=== PATIENT | female | born 1995 ===

== ENCOUNTER 2017-04-06 17:32 | Emergency (ER) | payer OTHER ==
--- NOTE | 2017-04-06 19:39 | ED ---
Head Injury - HPI Summary HPI Summary: Patient presents to ED after sustaining a head injury during an obstacle course yesterday. She states she fell backwards hitting the side of her head and immediately felt nauseous afterwards. She denies vomiting. Today, she endorses feeling off and lethargic. Denies confusion, memory loss, photophobia or abdominal pain. She denies other injuries or pain. Denies midline tenderness over cervical spine. She was able to complete the race yesterday without issues. She has not taken any medications for relief. - History Of Current Complaint Chief Complaint: EDHeadInjury Stated Complaint: FALL/HEAD INJURY Time Seen by Provider: 04/06/17 18:13 Hx Obtained From: Patient Hx Last Menstrual Period: 07/23/12 Mechanism Of Injury: Fall From Height Of: - 3 ft Onset/Duration: Started Days Ago Onset of Pain: Immediate Severity Currently: Mild Severity Initially: Mild Pain Intensity: 1 Pain Scale Used: 0-10 Numeric Location: Diffuse Character: Throbbing Alleviating Factor(s): Rest Associated Signs And Symptoms: Nausea - Risk Factors SDH Risk Factor: Negative - Allergies/Home Medications Allergies/Adverse Reactions: Allergies Allergy/AdvReac Type Severity Reaction Status Date / Time Amoxicillin Allergy Intermediate See Comment Verified 04/06/17 17:35 PMH/Surg Hx/FS Hx/Imm Hx Previously Healthy: Yes - Surgical History Surgery Procedure, Year, and [facility] Aden[facility]. - Immunization History Hx Pertussis Vaccination: No Immunizations Up to Date: Yes Infectious Disease History: No Infectious Disease History: Denies: Traveled Outside the [place] in Last 30 Days - Social History Occupation: Unemployed Lives: With Family Hx Substance Use: No Substance Use Type: Reports: None Hx Tobacco Use: No Smoking Status (MU): Never Smoked Tobacco Review of Systems Constitutional: Negative Positive: Photophobia ENT: Negative Cardiovascular: Negative Positive: Nausea Positive: no symptoms reported, see HPI Musculoskeletal: Negative Positive: Headache Psychological: Normal All Other Systems Reviewed And Are Negative: Yes Physical Exam Triage Information Reviewed: Yes Vital Signs On Initial Exam: Initial Vitals Temp Pulse Resp BP Pulse Ox 97.8 F 80 16 143/77 100 04/06/17 17:39 04/06/17 17:39 04/06/17 17:39 04/06/17 17:39 04/06/17 17:39 Vital Signs Reviewed: Yes Appearance: Positive: Well-Appearing, Well-Nourished Skin: Positive: Warm, Skin Color Reflects Adequate Perfusion Head/Face: Positive: Normal Head/Face Inspection Eyes: Positive: Normal, ESME, Conjunctiva Clear Neck: Positive: Supple, No Lymphadenopathy Respiratory/Lung Sounds: Positive: Clear to Auscultation, Breath Sounds Present Cardiovascular: Positive: Pulses are Symmetrical in both Upper and Lower Extremities Musculoskeletal: Positive: Normal, Strength/ROM Intact Neurological: Positive: Normal, Sensory/Motor Intact, Alert, Oriented to Person Place, Time, CN Intact II-III, Normal Gait, Speech Normal Psychiatric: Positive: Normal AVPU Assessment: Alert Diagnostics - Vital Signs Vital Signs Temp Pulse Resp BP Pulse Ox 04/06/17 17:39 97.8 F 80 16 143/77 100 - Laboratory Lab Statement: Any lab studies that have been ordered have been reviewed, and results considered in the medical decision making process. Head Injury Course/Dx Course Of Treatment: According to Dent CT Head Rules, CT was NOT obtained d/ t: GCS score >15 at 2h post injury. No suspected open or depressed skull fx, no sign of basal skull fx, no hemotympanum, raccoon eyes, Battles sign, CSF yani -/rhinorrhea, no emesis after injury, age <64yo, no amnesia greater than 30 minutes prior to trauma, and mechanism of injury was minimal impact with no MVA or fall greater than 3 ft. Complete neuro exam completed and WNL. Normal head/ face inspection with no cephalohematoma. Reflexes intact. EOMI, ESME, visual acuity intact. No obvious confusion or memory loss per patient and family. MMSE OK. GCS 15. Patient oriented to person, place and date. No obvious deformity or signs of trauma. Finger to nose, heel to toe OK. Speech normal, facial symmetry, normal gait, CN II-III intact. Patient denies LOC. ROM, strength, reflexes in upper and lower extremity intact, sensation intact. Patient discharged with return precautions and post-concussive symptoms explained to patient. Patient agrees to follow up and return if needed. - Diagnoses Differential Diagnosis/HQI/PQRI: Concussion With LOC, Concussion Without LOC, Contusion Provider Diagnoses: Concussion without loss of consciousness Discharge - Discharge Plan Condition: Stable Disposition: HOME Patient Education Materials: Concussion (ED) Forms: *School Release Referrals: No Primary Care Phys,NOPCP [Primary Care Provider] - Additional Instructions: Brain rest as much as possible Return to school as tolerated. If symptoms persist or worsen, more bed rest and discontinue reading, watching TV, phone use. Follow up with Student health or PCP
[2017-04-06 19:44] VITALS: BP 117/74
== END 2017-04-06 19:48 | disposition home or self-care (01) ==
LOC: ED 17:32
DX: S06.0X0A Concussion without loss of consciousness, initial encounter (principal); R51 Headache; R11.0 Nausea; H53.149 Visual discomfort, unspecified; W19.XXXA Unspecified fall, initial encounter; Y93.9 Activity, unspecified; Y92.9 Unspecified place or not applicable
CPT/HCPCS: 99281